=== PATIENT | male | born 1995 | race African-American/Black ===

== ENCOUNTER 2018-05-10 11:13 | Outpatient (CLI) | payer BC, OTHER ==
--- NOTE | 2018-05-10 15:31 | MRI ---
MRI LEFT KNEE WITHOUT CONTRAST: Date: 05/10/18 HISTORY: M23.92, internal derangement of left knee. Knee pain. COMPARISON: Knee radiograph dated 04/30/18. FINDINGS: Medial Meniscus: Abnormally increased signal of the posterior medial meniscal capsular junction. Lateral Meniscus: Intact. ACL and PCL: Intact. MCL and LCL: Intact. ' Extensor Mechanism: Quadriceps tendon, patella, and patellar tendon are all intact. Cartilage: Patellofemoral compartment: Intact. Medial compartment: Intact. Lateral compartment: Intact. Bones: There is a subtle contusion of the nonarticular surface of the medial femoral condyle. Muscles: Muscle signal and bulk is normal. IMPRESSION: 1. Subtle trabecular contusion of the medial femoral condyle which is suprameniscal. 2. Low grade medial meniscal capsular injury. POS: [facility]
== END 2018-05-10 11:14 | disposition home or self-care (01) ==
LOC: SCSMRI 11:13
PROVIDERS: ATTEND Orthopaedic Surgery
DX: M23.92 Unspecified internal derangement of left knee (principal); S70.12XD Contusion of left thigh, subsequent encounter